=== PATIENT | male | born 1955 | race Caucasian/White ===

== ENCOUNTER 2023-09-12 18:47 | Inpatient (IN) | payer OTHER ==
[2023-09-12 19:18] LABS: Absolute Lymphocytes (CBC) 3.1 K/uL (0.7-4.9); Hematocrit 42.1 % (39.6-49.0); Lymphocytes % 38.5 % (15.3-44.8); MCV 94.3 fL (80-100); Platelets 250 thou/uL (152-406); RBC Red Blood Cell Count 4.46 M/uL (4.33-5.43)
[2023-09-12] MEDS ORDERED: MAGNESIUM SULFATE 1 gm IVPB 1 GM/100 ML BAG IV ONE (19:27)
[2023-09-12] MEDS ORDERED: NA CHLORIDE 0.9% 1,000 ML ONE (19:27)
[2023-09-12 19:30] LABS: Protime INR 1.04
--- NOTE | 2023-09-12 19:36 | RAD REPORT ---
EXAM DESCRIPTION: RAD - Chest Single View - 09/12/2023 7:30 pm CLINICAL HISTORY: CHEST PAIN Chest pain. COMPARISON: Chest Pa And Lat (2 Views) dated 01/02/2022; Chest Pa And Lat (2 Views) dated 03/31/2016; CHEST SINGLE VIEW dated 12/22/2010 FINDINGS: Portable technique limits examination quality. The lungs are grossly clear. The heart is normal in size. No displaced fractures. IMPRESSION: No acute intrathoracic process suspected.
[2023-09-12 19:42] LABS: Albumin 3.9 g/dL (3.4-5.0); Bilirubin Direct 0.2 mg/dL (0-0.2); Bilirubin Indirect, Calculated 0.4 mg/dL (0.2-0.8); Bilirubin Total 0.6 mg/dL (0.2-1.0); Potassium 3.9 mEq/L (3.5-5.1); Troponin High Sensitivity 11.9 pg/mL (<58.9)
[2023-09-12] MEDS ORDERED: NA CHLORIDE 0.9% 500 ML ONE (20:49)
--- NOTE | 2023-09-12 20:53 | RAD REPORT ---
EXAM DESCRIPTION: CTAbdomen Pelvis W Contrast - 09/12/2023 8:37 pm CLINICAL HISTORY: Abdominal pain. dysuria, possible prostatitis COMPARISON: No comparisons TECHNIQUE: Biphasic CT imaging of the abdomen and pelvis was performed with 100 ml non-ionic IV cont rast. All CT scans are performed using dose optimization technique as appropriate and may include automated exposure control or mA/KV adjustment according to patient size. FINDINGS: The lung bases are clear. The liver, spleen, pancreas, adrenal glands and kidneys are within normal limits. Benign right renal cysts. No bowel obstruction, free air, free fluid or abscess. Moderate retained stool throughout the colon. Mild sigmoid diverticulosis coli without diverticulitis. The appendix is normal. No evidence of sign ificant lymphadenopathy. Small fat containing bilateral inguinal hernias. Mild lumbosacral degenerative changes. IMPRESSION: No acute intra-abdominal or pelvic finding.
--- NOTE | 2023-09-12 20:54 | RAD REPORT ---
EXAM DESCRIPTION: CT - Chest For Pe Angio - 09/12/2023 8:37 pm CLINICAL HISTORY: Chest pain. Palpitations;Chest pain COMPARISON: No comparisons TECHNIQUE: CT angiogram of the pulmonary arteries was performed with MIP. All CT scans are performed using dose optimization technique as appropriate and may include automated exposure control or mA/KV adjustment according to patient size. FINDINGS: No evidence of pulmonary thromboembolism. No acute aortic finding demonstrated. 6 mm nodule is present posterior right middle lobe abutting the fissure. Mild atelectasis is present in the left lung base. No focal infiltrate is seen. No significant pericardial or pleural fluid. No concerning bony finding. IMPRESSION: No evidence of pulmonary thromboembolism. No acute lung findings. 6 mm right middle lobe nodule. Follow-up low-dose CT (LDCT) recommended in 6-12 months.
--- NOTE | 2023-09-12 21:15 | EDPHYS ---
Physician Documentation [facility] Name: Dwayne Albarado Age: 67 yrs Sex: Male : 1955 Arrival Date: 09/12/2023 Time: 18:47 Bed 5 Private MD: ED Physician Edis Dickinson HPI: 09/12 19:27 This 67 yrs old Male presents to ER via Ambulatory with complaints of Chest Tightness, internet consultant Rate Probelm. 19:27 The patient or guardian reports chest pain that is located primarily in the anterior rn chest wall. Onset: today. The pain does not radiate. Associated signs and symptoms: Pertinent positives: dizziness, lightheadedness, palpitations, Pertinent negatives: shortness of breath, syncope. The chest pain is described as aching. Duration: The patient or guardian reports multiple episodes, that are intermittent. Modifying factors: The symptoms are alleviated by nothing. the symptoms are aggravated by nothing. Severity of pain: At its worst the pain was mild in the emergency department the pain is unchanged. The patient has not experienced similar symptoms in the past. Patient reports not feeling well over the last 2 days. Reports combination of chest pain, palpitations, lightheadedness. Also reports dysuria and small amount of penile discharge. Reports history of frequent prostate infections. Denies fever. No chills. No abdominal pain. No vomiting or diarrhea. No shortness of breath. No syncope. Reports his watch stated heart rate in the 30s.. Historical: - Allergies: 18:59 No Known Allergies; hb - Immunization history:: Client reports having NOT received the Covid vaccine. Flu vaccine is not up to date. - Family history:: not pertinent. - Social history:: Smoking status: Patient denies any tobacco usage or history of. - Hospitalizations: : No recent hospitalization is reported. ROS: 19:27 Constitutional: Negative for fever, chills, and weight loss, Eyes: Negative for injury, rn pain, redness, and discharge, Neck: Negative for injury, pain, and swelling, Cardiovascular: Positive for chest pain and palpitations Respiratory: Negative for shortness of breath, cough, wheezing, and pleuritic chest pain, Abdomen/GI: Negative for abdominal pain, nausea, vomiting, diarrhea, and constipation, : Positive for dysuria and discharge MS/Extremity: Negative for injury and deformity, Skin: Negative for injury, rash, and discoloration, Neuro: Positive for generalized weakness and malaise Exam: 19:27 Constitutional: This is a well developed, well nourished patient who is awake, alert, rn and in no acute distress. Head/Face: Normocephalic, atraumatic. ENT: Dry mucous membranes Cardiovascular: Tachycardic, irregular Respiratory: Mild tachypnea Abdomen/GI: Soft, nontender MS/ Extremity: Pulses equal, no cyanosis. Neuro: Awake and alert, GCS 15 20:35 ECG was reviewed by the Attending Physician. rn Vital Signs: 18:57 BP 156 / 90; Pulse 113; Resp 23; Temp 97.9(TE); Pulse Ox 97% on R/A; Pain 1/10; hb 19:38 BP 141 / 65; Pulse 95; Pulse Ox 95% on R/A; tm6 21:01 BP 130 / 59; Pulse 108; Pulse Ox 96% on R/A; tm6 21:54 BP 136 / 68; Pulse 92; Pulse Ox 96% on R/A; tm6 22:30 BP 119 / 57; Pulse 89; Resp 18; Pulse Ox 95% on R/A; km8 23:33 BP 135 / 77; Pulse 85; Resp 16; Pulse Ox 95% on R/A; km8 18:57 Pain Scale: Adult hb [place] Coma Score: 19:35 Eye Response: spontaneous(4). Motor Response: obeys commands(6). Verbal Response: km8 oriented(5). Total: 15. MDM: 18:52 Patient medically screened. sp3 21:13 Differential diagnosis: acute myocardial infarction, acute pericarditis, anxiety, rn coronary artery disease pleurisy, pneumothorax, pulmonary embolus, stable angina, thoracic aortic disection, unstable angina, prostatitis, urethritis. Data reviewed: vital signs, nurses notes, lab test result(s), EKG, radiologic studies, CT scan, plain films, and as a result, I will admit patient. Consideration of Admission/Observation Patient was admitted/placed on observation. Escalation of care including admission/observation considered. Counseling: I had a detailed discussion with the patient and/or guardian regarding the historical points, exam findings, and any diagnostic results supporting the discharge/admit diagnosis, lab results, radiology results, the need for further work-up and treatment in the hospital. Response to treatment: the patient's symptoms have mildly improved after treatment. 23:03 Independent interpretation of the following test(s) in the Emergency Department internet marketing analyst monitor: rate is 86 beats/min, Rhythm is normal sinus rhythm, irregular, with unifocal PVCs, Interpretation: sinus rhythm with PVCs, bigeminy at times. 09/12 18:52 Order name: Basic Metabolic Panel; Complete Time: 19:53 sp3 09/12 18:52 Order name: CBC with Diff; Complete Time: 19:29 sp3 09/12 18:52 Order name: LFT's; Complete Time: 19:53 sp3 09/12 18:52 Order name: Magnesium; Complete Time: 19:53 sp3 09/12 18:52 Order name: NT PRO-BNP; Complete Time: 19:53 sp3 09/12 18:52 Order name: PT-INR; Complete Time: 19:53 sp3 09/12 18:52 Order name: Troponin HS; Complete Time: 19:53 sp3 09/12 19:13 Order name: Urinalysis w/ reflexes; Complete Time: 22:02 rn 09/12 22:37 Order name: CBC with Automated Diff EDMS 09/12 22:37 Order name: CBC with Automated Diff EDMS / 22:37 Order name: Comprehensive Metabolic Panel EDDE / 22:37 Order name: Comprehensive Metabolic Panel EDDE / 22:37 Order name: Lipid Profile EDMS / 22:37 Order name: Lipid Profile EDMS / 22:37 Order name: Magnesium EDMS 09/12 22:37 Order name: Magnesium EDMS 09/12 22:37 Order name: Troponin High Sensitivity EDMS 09/12 22:37 Order name: Troponin High Sensitivity EDMS / 22:37 Order name: Troponin High Sensitivity EDMS / 22:37 Order name: Troponin High Sensitivity EDMS / 18:52 Order name: XRAY Chest (1 view); Complete Time: 19:53 sp3 09/12 19:29 Order name: CT Chest For PE Angio; Complete Time: 20:55 rn 09/12 19:30 Order name: CT Abd/Pelvis - IV Contrast Only; Complete Time: 20:55 rn 09/12 18:52 Order name: EKG; Complete Time: 18:53 sp3 09/12 22:37 Order name: CONS Physician Consult EDDE 09/12 18:52 Order name: Cardiac monitoring; Complete Time: 19:00 3 09/12 18:52 Order name: EKG - Nurse/Tech; Complete Time: 19:00 3 09/12 18:52 Order name: IV Saline Lock; Complete Time: 19:12 sp3 09/12 18:52 Order name: Labs collected and sent; Complete Time: 19:12 3 09/12 18:52 Order name: O2 Per Protocol; Complete Time: 19:00 sp3 09/12 18:52 Order name: O2 Sat Monitoring; Complete Time: 19:3 EC:35 Rate is 136 beats/min. Rhythm is irregular. Left axis deviation noted. QRS is positive rn in lead I and negative in lead aVF. OK interval is normal. QRS interval is normal. QT interval is normal. No Q waves. T waves are Normal. No ST changes noted. Clinical impression: NSR w/ Non-specific ST/T Changes and PVCs. Interpreted by me. Reviewed by me. Administered Medications: 19:34 Drug: NS 0.9% IV 1000 ml IV at 1000 ml once Route: IV; Rate: 1000 ml; Site: right [address]; 21:27 Follow up: IV Status: Completed infusion; IV Intake: 1000ml [facility] 19:34 Drug: Magnesium Sulfate IVPB 1 grams IVPB once over 1 hrs Route: IVPB; Infused Over: 1 km8 hrs; Site: right antecubital; 21:27 Follow up: IV Status: Completed infusion; IV Intake: 150ml [facility] 22:59 Drug: Aspirin PO Chewable Tablet 324 mg PO once; 81 mg tablets x 4 Route: PO; km8 23:12 Follow up: Response: No adverse reaction 8 Disposition Summary: 09/12/23 21:14 Hospitalization Ordered Notes: Hospitalization Status: Observation rn Provider: Be Joyner rn Location: Telemetry/MedSurg (observation) rn Condition: Stable rn Problem: new rn Symptoms: have improved rn Bed/Room Type: Standard rn Room Assignment: 212(09/12/23 23:12) cg Diagnosis - Chest pain, unspecified rn - Palpitations rn Forms: - Medication Reconciliation Form rn - SBAR form rn - Leadership Thank You Letter rn Signatures: Dispatcher [employer] Edis Rivera MD MD rn Garcia, Cindy, RN RN Conchita Hubbard RN RN hb Bryson, James, RN RN jb4 Daryl Landrum MD MD sp3 Shannan Fam RN RN km8 Corrections: (The following items were deleted from the chart) 22:59 21:14 rn jb4 23:08 22:59 408 jb4 23:10 23:08 jb 23:12 23:[address] [place] [address]
--- NOTE | 2023-09-12 21:15 | ER ---
Nurse's Notes [facility] Name: Dwayne Albarado Age: 67 yrs Sex: Male : 1955 Arrival Date: 09/12/2023 Time: 18:47 Bed 5 Private MD: Diagnosis: Chest pain, unspecified;Palpitations Presentation: 09/12 18:57 Chief complaint: Chest pressure and dizziness x 2-3 days, anxiety and malaise since hb this morning. Garmin showed HR 30s just WHEEL BORER. Coronavirus screen: At this time, the client does not indicate any symptoms associated with coronavirus-19. Ebola Screen: No symptoms or risks identified at this time. Initial Sepsis Screen: Does the patient meet any 2 criteria? No. Patient's initial sepsis screen is negative. Does the patient have a suspected source of infection? No. Patient's initial sepsis screen is negative. Risk Assessment: Do you want to hurt yourself or someone else? Patient reports no desire to harm self or others. Onset of symptoms was September 10, 2023. 18:57 Method Of Arrival: Ambulatory hb 18:57 Acuity: GALLO 3 hb Historical: - Allergies: 18:59 No Known Allergies; hb - Immunization history:: Client reports having NOT received the Covid vaccine. Flu vaccine is not up to date. - Family history:: not pertinent. - Social history:: Smoking status: Patient denies any tobacco usage or history of. - Hospitalizations: : No recent hospitalization is reported. Screenin:35 [facility] ED Fall Risk Assessment (Adult) History of falling in the last 3 months, km8 including since admission No falls in past 3 months (0 pts) Confusion or Disorientation No (0 pts) Intoxicated or Sedated No (0 pts) Impaired Gait No (0 pts) Mobility Assist Device Used No (0 pt) Altered Elimination No (0 pt) Score/Fall Risk Level 0 - 2 = Low Risk Oriented to surroundings, Maintained a safe environment, Educated pt \T\ family on fall prevention, incl call for assistance when getting out of bed, Assessed \T\ reinforced patient's understanding of fall precautions. Abuse screen: Denies threats or abuse. Denies injuries from another. Nutritional screening: No deficits noted. Tuberculosis screening: No symptoms or risk factors identified. Assessment: 19:35 General: Appears in no apparent distress. comfortable, Behavior is calm, cooperative, km8 appropriate for age. Pain: Denies pain. Neuro: Level of Consciousness is awake, alert, obeys commands, Oriented to person, place, time, situation. Cardiovascular: Denies chest pain, shortness of breath, Capillary refill < 3 seconds Patient's skin is warm and dry. Respiratory: Airway is patent Respiratory effort is even, unlabored, Respiratory pattern is regular, symmetrical. GI: No signs and/or symptoms were reported involving the gastrointestinal system. : No signs and/or symptoms were reported regarding the genitourinary system. EENT: No signs and/or symptoms were reported regarding the EENT system. Derm: No signs and/or symptoms reported regarding the dermatologic system. Skin is intact, is healthy with good turgor, Skin is dry, Skin is pink, warm \T\ dry. normal, Skin temperature is warm. Musculoskeletal: No signs and/or symptoms reported regarding the musculoskeletal system. Circulation, motion, and sensation intact. Range of motion: intact in all extremities. 21:01 Reassessment: Patient appears in no apparent distress at this time. No changes from tm6 previously documented assessment. Patient and/or family updated on plan of care and expected duration. Pain level reassessed. Patient is alert, oriented x 3, equal unlabored respirations, skin warm/dry/pink. 21:55 Reassessment: Patient appears in no apparent distress at this time. No changes from tm6 previously documented assessment. Patient and/or family updated on plan of care and expected duration. Pain level reassessed. Patient is alert, oriented x 3, equal unlabored respirations, skin warm/dry/pink. Vital Signs: 18:57 BP 156 / 90; Pulse 113; Resp 23; Temp 97.9(TE); Pulse Ox 97% on R/A; Pain 1/10; hb 19:38 BP 141 / 65; Pulse 95; Pulse Ox 95% on R/A; tm6 21:01 BP 130 / 59; Pulse 108; Pulse Ox 96% on R/A; tm6 21:54 BP 136 / 68; Pulse 92; Pulse Ox 96% on R/A; tm6 22:30 BP 119 / 57; Pulse 89; Resp 18; Pulse Ox 95% on R/A; km8 23:33 BP 135 / 77; Pulse 85; Resp 16; Pulse Ox 95% on R/A; km8 18:57 Pain Scale: Adult hb Oleksandr Coma Score: 19:35 Eye Response: spontaneous(4). Motor Response: obeys commands(6). Verbal Response: km8 oriented(5). Total: 15. ED Course: 18:50 Patient arrived in ED. mg5 18:58 Triage completed. hb 19:01 Edis Dickinson MD is Attending Physician. rn 19:11 Inserted saline lock: 20 gauge in right antecubital area, using aseptic technique. tl4 Blood collected. 19:12 Basic Metabolic Panel Sent. tl4 19:12 CBC with Diff Sent. tl4 19:12 LFT's Sent. tl4 19:12 Magnesium Sent. tl4 19:12 NT PRO-BNP Sent. tl4 19:12 PT-INR Sent. tl4 19:12 Troponin HS Sent. tl4 19:32 XRAY Chest (1 view) In Process Unspecified. EDMS 19:35 Shannan Fam, RN is Primary Nurse. km8 19:35 No provider procedures requiring assistance completed. Patient maintains SpO2 km8 saturation greater than 95% on room air. 19:35 Patient has correct armband on for positive identification. Bed in low position. Call km8 light in reach. Side rails up X 1. Client placed on continuous cardiac and pulse oximetry monitoring. NIBP monitoring applied. 19:37 Arm band placed on right wrist. km8 20:39 CT Chest For PE Angio In Process Unspecified. EDMS 20:39 CT Abd/Pelvis - IV Contrast Only In Process Unspecified. EDMS 21:14 Be Joyner MD is Hospitalizing Provider. rn 21:27 Urinalysis w/ reflexes Sent. km8 23:11 Patient admitted, IV remains in place. km8 23:11 Provided Education on: admission process. km8 Administered Medications: 19:34 Drug: NS 0.9% IV 1000 ml IV at 1000 ml once Route: IV; Rate: 1000 ml; Site: right 8 antecubital; 21:27 Follow up: IV Status: Completed infusion; IV Intake: 1000ml km8 19:34 Drug: Magnesium Sulfate IVPB 1 grams IVPB once over 1 hrs Route: IVPB; Infused Over: 1 km8 hrs; Site: right antecubital; 21:27 Follow up: IV Status: Completed infusion; IV Intake: 150ml km8 22:59 Drug: Aspirin PO Chewable Tablet 324 mg PO once; 81 mg tablets x 4 Route: PO; km8 23:12 Follow up: Response: No adverse reaction km8 Medication: 19:35 VIS not applicable for this client. km8 Intake: 21:27 IV: 150ml; Total: 150ml. km8 21:27 IV: 1000ml; Total: 1150ml. km8 Output: 21:54 Urine: 200ml (Voided); Total: 200ml. tm6 Outcome: 21:14 Decision to Hospitalize by Provider. rn 23:33 Admitted to Med/surg accompanied by tech, via wheelchair, room 212, with chart, Report km8 called to JOSE Zepeda 23:33 Condition: stable 23:33 Instructed on the need for admit, Demonstrated understanding of instructions, 23:43 Patient left the ED. km8 Signatures: Dispatcher [employer] EDMS Edis Dickinson MD MD rn Baxter, Heather, RN RN hb Gardner, [place] mg5 Shnanan Fam RN RN km8 Tammie Graves RN RN 6 Jose Angeles 4
[2023-09-12 22:00] LABS: Specific Gravity > 1.030 (1.005-1.030); Urine Bacteria None Seen /HPF (<20); Urine Bilirubin NEGATIVE (Negative); Urine Blood Trace (Negative); Urine Clarity Clear (Clear); Urine Color Colorless (Yellow); Urine Glucose NEGATIVE (Negative); Urine Protein NEGATIVE (Negative); Urine RBC <5 /HPF (None Seen); Urine Urobilinogen Normal (Normal); Urine pH 6.5 (5.0-7.0)
[2023-09-12] MEDS ORDERED: ACETAMINOPHEN 325 MG TABLET PO PRN (22:31)
[2023-09-12] MEDS ORDERED: ONDANSETRON 4 MG/2 ML VIAL IV PRN (22:31)
--- NOTE | 2023-09-12 22:36 | P.HP ---
Certification for Inpatient Patient admitted to: Observation With expected LOS: <2 Midnights Practitioner: I am a practitioner with admitting privileges, knowledge of patient current condition, hospital course, and medical plan of care. Services: Services provided to patient in accordance with Admission requirements found in Title 42 Section 412.3 of the Code of Federal Regulations Patient History Date of Service: 09/13/23 Reason for admission: Tachycardia. History of Present Illness: 67-year-old male patient with significant medical history for hypothyroidism and benign prostatic hypertrophy who was evaluated in the emergency room for episode of lethargy and palpitation. He had tachycardia and EKG was abnormal. He had a couple of PVCs and bigeminy so he was admitted for inpatient care. Initial lab was not concerning for ACS as troponin was negative. Electrolytes were also within acceptable limits. Patient did report that he had an exertion when he had a bike ride for 12 mile however he had no history of chest pain, nausea, vomiting, diarrhea. He had no prior history of cardiac workup. Allergies No Known Allergies Allergy (Unverified 09/12/23 23:15) Home Medications: Levothyroxine [Synthroid*] 0.05 mg PO DAILY 09/12/23 Tamsulosin [Flomax*] 0.4 mg PO DAILY 09/12/23 Zolpidem Tartrate [Ambien] 10 mg PO BEDTIME PRN PRN 09/12/23 Review of Systems General: Weakness, Malaise Eyes: Unremarkable ENT: Unremarkable Respiratory: As per HPI Cardiovascular: Unremarkable Gastrointestinal: Unremarkable Genitourinary: Unremarkable Musculoskeletal: Unremarkable Integumentary: Unremarkable Neurological: Unremarkable Lymphatics: Unremarkable Physical Examination - Physical Exam General: Alert, Oriented x3 HEENT: Atraumatic Neck: Supple Respiratory: Normal air movement Cardiovascular: Other (tachycardia) Gastrointestinal: Soft and benign Musculoskeletal: No swelling Neurological: Normal speech, Normal strength at 5/5 x4 extr - Studies Laboratory Data (last 24 hrs) 09/12/23 09/12/23 09/12/23 19:08 19:08 19:08 WBC 8.20 Hgb 14.5 Hct 42.1 Plt Count 250 PT 11.4 INR 1.04 Sodium 138 Potassium 3.9 BUN 12 Creatinine 0.99 Glucose 91 Magnesium 2.0 Total Bilirubin 0.6 AST 25 ALT 40 Alkaline Phosphatase 72 Assessment and Plan - Plan Tachycardia: EKG was concerning for multiple PVCs, premature atrial complexes and PVCs. Patient has been put on telemetry. Will trend troponin, obtain echocardiogram for evaluation of cardiac health and consult cardiology for management recommendation. Will obtain lipid panel to assess coronary risks. IV hydration started. Will also put on as needed Ativan for anxiety management. Hypothyroidism: We will continue levothyroxine dose for thyroid replacement therapy. Benign prostatic hypertrophy: Will continue tamsulosin dose. Prophylaxis: Lovenox for GI prophylaxis Consult: Full code Disposition: We will treat and will complete echo with manual be discharged once cleared by cardiology service. - Advance Directives Does patient have a Living Will: No Does patient have a Durable POA for Healthcare: No
[2023-09-12] MEDS ORDERED: ASPIRIN 81 MG CHEWABLE TABLET ONE (22:55)
[2023-09-12 23:07] VITALS: BMI 28.2
[2023-09-13] MEDS: ALPRAZOLAM 0.25 MG TABLET PO PRN (00:28)
[2023-09-13] MEDS: NA CHLORIDE 0.9% 1,000 ML IV SCH (00:28)
[2023-09-13 02:39] LABS: Absolute Lymphocytes (CBC) 2.5 K/uL (0.7-4.9); Lymphocytes % 40.8 % (15.3-44.8); MCV 94.5 fL (80-100); MPV 7.7 fL (7.6-11.3); Platelets 220 thou/uL (152-406); RBC Red Blood Cell Count 3.91 M/uL (4.33-5.43)
[2023-09-13 02:56] LABS: Albumin 3.2 g/dL (3.4-5.0); Bilirubin Total 0.4 mg/dL (0.2-1.0); Magnesium 2.1 mg/dL (1.6-2.4); Potassium 3.9 mEq/L (3.5-5.1); Protein, Total 5.8 g/dL (6.4-8.2)
[2023-09-13] MEDS: POTASSIUM CL SA 10 MEQ TAB PO ONE (08:26)
[2023-09-13] MEDS: ENOXAPARIN 40 MG/0.4 ML SQ SCH (08:26)
--- NOTE | 2023-09-13 10:25 | P.PN ---
Subjective Date of Service: 09/13/23 Chief Complaint: Tachycardia. Subjective: No new changes, Improving, Doing well Patient is alert and oriented x 3 Resting in the bed NAD Denies any pain or shortness of breath Vital stable <Nikki Mcginnismike - Last Filed: 09/13/23 10:25> Date of Service: 09/14/23 <Collin Joyner - Last Filed: 09/14/23 22:01> Review of Systems 10-point ROS is otherwise unremarkable <Casey Mcginnises - Last Filed: 09/13/23 10:25> Physical Examination - Vital Signs Temperature: 99.1 F Blood Pressure: 126/71 Pulse: 50 Respirations: 15 Pulse Ox (%): 95 - Physical Exam General: Alert, In no apparent distress HEENT: Atraumatic, Normocephalic Neck: Supple, 2+ carotid pulse no bruit Respiratory: Clear to auscultation bilaterally, Normal air movement Cardiovascular: No edema, Normal pulses, Other Gastrointestinal: Normal bowel sounds, Soft and benign, Non-distended Musculoskeletal: No clubbing, No swelling Integumentary: No rashes, No breakdown Neurological: Normal gait, Normal speech, Normal tone - Studies Laboratory Data (last 24 hrs) 09/12/23 09/12/23 09/12/23 19:08 19:08 19:08 WBC 8.20 Hgb 14.5 Hct 42.1 Plt Count 250 PT 11.4 INR 1.04 Sodium 138 Potassium 3.9 BUN 12 Creatinine 0.99 Glucose 91 Magnesium 2.0 Total Bilirubin 0.6 AST 25 ALT 40 Alkaline Phosphatase 72 <Nikki Mcginnismike - Last Filed: 09/13/23 10:25> Assessment And Plan - Current Problems (Diagnosis) (1) Tachycardia Current Visit: Yes Status: Acute (2) Hypothyroid Current Visit: Yes Status: Chronic Qualifiers: Hypothyroidism type: acquired Qualified Code(s): E03.9 - Hypothyroidism, unspecified (3) BPH (benign prostatic hyperplasia) Current Visit: Yes Status: Chronic Qualifiers: Lower urinary tract symptom presence: symptoms absent Qualified Code(s): N40.0 - Benign prostatic hyperplasia without lower urinary tract symptoms (4) Lung nodule seen on imaging study Current Visit: Yes Status: Acute - Plan Tachycardia: EKG was concerning for multiple PVCs, premature atrial complexes and PVCs. Patient has been put on telemetry. Will trend troponin, obtain echocardiogram for evaluation of cardiac health and consult cardiology for management recommendation. Will obtain lipid panel to assess coronary risks. IV hydration started. Will also put on as needed Ativan for anxiety management. Transthoracic echocardiogram ordered. Lung Nodule seen on imaging study: Incidental finding of 6 mm nodule is present posterior right middle lobe abutting the fissure. Mild atelectasis is present in the left lung base. Patient to f/u with sales development manager outpatient. Hypothyroidism: We will continue levothyroxine dose for thyroid replacement therapy. Benign prostatic hypertrophy: Will continue tamsulosin dose. Prophylaxis: Lovenox for GI prophylaxis Consult: Full code Disposition: We will treat and will complete echo with manual be discharged once cleared by cardiology service Discharge Plan: Home Plan to discharge in: 24 Hours - Code Status/Comfort Care Code Status Assessed: Yes (full code) Code Status: Full Code Physician Review: Patient Assessed, Agree with Above Assessment and Plan Critical Care: No Time Spent Managing PTS Care (In Minutes): 35 (minutes) <Yakov Mcginnis - Last Filed: 09/13/23 10:25> - Plan Pt seen and examined. I agree withe the note by the SECOND CLASS WELDER. Pt is waiting for Cardiology eval. Continue telemetry. <Collin Joyner - Last Filed: 09/14/23 22:01>
[2023-09-13] MEDS: TAMSULOSIN 0.4 MG SR CAP PO SCH (14:17)
[2023-09-13] MEDS: ZOLPIDEM TARTRATE 10 MG TABLET PO PRN (20:00)
[2023-09-14] MEDS: LEVOTHYROXINE SOD 0.05 MG TABLET PO SCH (05:18)
--- NOTE | 2023-09-14 13:15 | P.PN ---
Subjective Date of Service: 09/14/23 Chief Complaint: Tachycardia. Pt is resting comfortably in bed. He is anxious about seeing the sewer hand. Dr. Keating recommends cardiac cath. Pt is thinking about it. No other complaints. Review of Systems Unremarkable General: Unremarkable Eyes: Unremarkable ENT: Unremarkable Respiratory: Unremarkable Cardiovascular: Palpitations Gastrointestinal: Unremarkable Genitourinary: Unremarkable Musculoskeletal: Unremarkable Integumentary: Unremarkable Neurological: Unremarkable Lymphatics: Unremarkable Physical Examination - Vital Signs Temperature: 98.6 F Blood Pressure: 143/89 Pulse: 70 Respirations: 16 Pulse Ox (%): 98 - Physical Exam General: Alert, In no apparent distress, Oriented x3 HEENT: Atraumatic, Normocephalic, PERRLA Neck: Supple, 2+ carotid pulse no bruit Respiratory: Clear to auscultation bilaterally, Normal air movement Cardiovascular: No edema, Normal pulses, Regular rate/rhythm, Normal S1 S2 Capillary refill: <2 Seconds Gastrointestinal: Normal bowel sounds, Soft and benign, Non-distended Musculoskeletal: No clubbing, No swelling Integumentary: No rashes, No breakdown Neurological: Normal gait, Normal speech, Normal strength at 5/5 x4 extr, Normal tone, Sensation intact, Cranial nerves 3-12 intact, Normal reflexes 2+ Lymphatics: No axilla or inguinal lymphadenopathy Assessment And Plan - Plan Tachycardia: EKG showed multiple PVCs, premature atrial complexes and PVCs. Consulted Cardiology. Cardiology is recommending cardiac cath. Waiting for the pt to decide whether he wants to proceed with cardiac cath. Troponin is unremarkable. Will follow up Echo. Anxiety: prn ativan 6mm Lung Nodule: It is an incidental finding of 6 mm nodule in the posterior right middle lobe abutting the fissure. Pt will follow up with Boat Detailer in clinic. Hypothyroidism: Continue levothyroxine. Benign prostatic hypertrophy: tamsulosin dose. DVT Prophylaxis: Lovenox DVT ppx: Full code Disposition: Pending hospital course. Waiting for pt to decide whether he wants to proceed with cardiac cath. Physician Review: Patient Assessed, Agree with Above Assessment and Plan
--- NOTE | 2023-09-14 13:53 | CON ---
Date of Consultation: 09/14/2023 Reason For Consultation: Chest discomfort and bradycardia. History Of Present Illness: 67-year-old male, history of hypothyroidism, enlarged prostate, presente d with episodes of dizziness, feeling generally weak, and checked his Apple watch, which told him his heart rate was 34, presented into the emergency room. He has been active, biking on a bicycle on a regular basis, but he has been having chest tightness and shortness of breath with extreme activities now, where he did not have before. Denies having any nausea or vomiting, and on the EKGs having isaiah y frequent PVCs. Past Medical History: As outlined above in the HPI. Medications: Refer to reconciliation sheet for detailed list. Allergies: NO KNOWN DRUG ALLERGIES. Family History: No premature coronary artery disease or cancer. Social History: He does not smoke or drink. Does not use any drugs. Review of Systems: All systems reviewed were negative except mentioned in HPI. Physical Examination: Vital Signs: Reviewed. Head and Neck: Pupils are equal, reactive to light. Intact eye movements. No JVD. No cervical lym phadenopathy. Neck is supple. Thyroid is not enlarged. Lungs: Clear to auscultation bilaterally. No rhonchi, rales, or crackles. No accessory muscle use. Heart: Regular rate and rhythm. No extra sounds. Abdomen: Soft, nontender. Bowel sounds positive. No organomegaly. No masses or hernia. No rigidi ty or rebound. Extremities: No edema, clubbing, cyanosis. Intact pulses. Skin: No rash or nodule. Neurologic: Alert, awake, oriented x3. No acute focal deficits appreciated. Lymph Nodes: No cervical or axillary lymphadenopathy. Investigations: Cardiac enzymes x3 are negative. BUN 14, creatinine 0.79, hemoglobin 12.8. Assessment And Recommendations: 1.Chest pain with very frequent PVCs. Ischemia evaluation is recommended. Given that continued ons et, this could be unstable angina. Plan for coronary angiogram today. Keep NPO and further recommen dation after the left heart catheterization. Continue baby aspirin. 2.PVCs, very frequent, causing his symptoms for the most part. If coronary angiogram is negative, s tart him on metoprolol 25 mg twice a day and carefully monitor his heart rate response to it on the t elemetry. So I would keep him for 24 hours for that purpose. 3.Elevated blood pressure likely hypertension. Metoprolol as above. SR/MODL Voice ID: [id number] Report ID: [id number]
--- NOTE | 2023-09-14 15:03 | EKG ---
Test Date: 2023-09-12 Test Time: 18:58:30 Bog Worker: Jermaine RAMÍREZ MEASUREMENT RESULTS: Intervals: Rate: 111 CO: 158 QRSD: 78 QT: 338 QTc: 459 Munith: P: 47 CO: 158 QRS: -33 T: 15 INTERPRETIVE STATEMENTS: Sinus rhythm Left axis deviation Inferior infarct, age undetermined Abnormal ECG Ventricular premature complex(es) no longer present Myocardial infarct finding still present Electronically Signed On 09-14-23 14:59:15 NUCLEAR OFFICER by Wellington Keating
--- NOTE | 2023-09-14 15:03 | EKG ---
Test Date: 2023-09-12 Test Time: 18:58:02 Maintenance Director: Jermaine SI MEASUREMENT RESULTS: Intervals: Rate: 136 [place]: 158 QRSD: 82 QT: 322 QTc: 484 [place]: P: 47 [place]: 158 QRS: -39 T: 31 INTERPRETIVE STATEMENTS: Sinus rhythm with frequent and consecutive premature ventricular complexes Left axis deviation Inferior infarct, age undetermined Abnormal ECG No previous ECG available for comparison Electronically Signed On 09-14-23 14:59:18 ECONOMIC ADVISER by Wellington Keating
[2023-09-14] MEDS ORDERED: VERAPAMIL HCL 10 MG/4 ML VIAL IV ONE (15:46)
[2023-09-14] MEDS ORDERED: HEPA 1000U/500MLS 2,000 UNIT/1,000 ML BAG IV ONE (15:46)
[2023-09-14] MEDS ORDERED: LIDOCAINE 1% 20 ML MDV ONE (15:46)
[2023-09-14] MEDS ORDERED: MIDAZOLAM HCL 2 MG/2 ML INJ ONE (15:46)
[2023-09-14] MEDS ORDERED: FENTANYL CITR 100 MCG/2 ML ONE (15:46)
[2023-09-14] MEDS ORDERED: HEPARIN 5000 UNIT/ML 1 ML VIAL ONE (15:47)
[2023-09-14] MEDS ORDERED: ATROPINE SULF 1 MG/10 ML SYR IV ONE (15:47)
[2023-09-14] MEDS ORDERED: HEPARIN 10,000 UNIT/10 ML VIAL IV ONE (15:47)
[2023-09-14] MEDS: SOTALOL HCL 80 MG TAB PO ONE (17:15)
[2023-09-14 20:16] LABS: Thyroid Stimulating Hormone 3.89 uIU/mL (0.358-3.740)
[2023-09-14] MEDS: SOTALOL HCL 80 MG TAB PO SCH (21:00)
--- NOTE | 2023-09-15 03:51 | OP ---
Date of Procedure: 09/14/2023 Surgeon: NAYLA WASHINGTON Procedure Performed: 1.Selective coronary angiogram. 2.Left heart catheterization. Indication: Chest pain with very frequent PVCs. He is in bigeminy all the time. Access: Right radial artery 6-Armenian closed with TR band. Complications: None. Bleeding: Less than 20 mL. Anesthesia: Total sedation time was 50 minutes. Used fentanyl, Versed. Description Of Procedure: After risks, benefits, alternatives were explained, the patient agreed to proceed and signed informed consent. Patient was brought into the cardiac catheterization laboratory , prepped and draped in usual sterile fashion. Then, we accessed the right radial artery using pedia tric micropuncture kit and placed 6-Armenian slender sheath and took a 6-Armenian JL3.5 catheter into aor tic root over a J-wire, engaged left main and took standard views and then exchanged for a 6-Armenian J R4 catheter, engaged the RCA, took standard views and the catheter was pushed over the wire into the LV, measured LVEDP. Pullback not recorded any gradient and then removed the catheter and the wire an d the sheath and placed TR band with good hemostasis. Findings: 1.Left main: Large and normal. 2.LAD: Very large vessel with mid focal 40% stenosis between diagonal 1 and diagonal 2. Diagonals are normal and then next to the diagonal 2, there is 20% stenosis. Rest of the LAD is normal. 3.Left circumflex: Very large and normal. 4.RCA: Large and dominant with mid 20% stenosis. 5.Normal LVEDP at 5 mmHg. Conclusion: 1.[id number] coronary artery disease, nonobstructive. 2.Normal LVEDP. Recommendation: Medical management. SR/MODL Voice ID: [id number] Report ID: [id number]
[2023-09-15 05:15] LABS: Potassium 4.4 mEq/L (3.5-5.1)
--- NOTE | 2023-09-15 07:15 | ECHO ---
HEIGHT: 5 ft 9 in WEIGHT: 191 lb 0 oz DATE OF STUDY: 09/14/[address]: Collin Joyner MD 2-DIMENSIONAL: YES M.MODE: YES DOPPLER: YES COLOR FLOW: YES TDS: PORTABLE: YES DEFINITY: BUBBLE STUDY: DIAGNOSIS: PREMATURE VENTRICULAR COMPLEXES CARDIAC HISTORY: CATHERIZATION: SURGERY: PROSTHETIC VALVE: PACEMAKER: MEASUREMENTS (cm) DIASTOLIC (NORMALS) SYSTOLIC (NORMALS) IVSd 1.0 (0.6-1.2) LA Diam 3.9 (1.9-4.0) LVEF 65% LVIDd 5.4 (3.5-5.7) LVIDs 3.4 (2.0-3.5) %FS 36% LVPWd 1.1 (0.6-1.2) Ao Diam 3.5 (2.0-3.7) 2 DIMENSIONAL ASSESSMENT: RIGHT ATRIUM: NORMAL LEFT ATRIUM: NORMAL RIGHT VENTRICLE: NORMAL LEFT VENTRICLE: NORMAL TRICUSPID VALVE: MILD TRICUSPID REGURGITATION MITRAL VALVE: MODERATE MITRAL REGURGITATION PULMONIC VALVE: NORMAL AORTIC VALVE: MILD AORTIC INSUFFICIENCY PERICARDIAL EFFUSION: NONE AORTIC ROOT: NORMAL LEFT VENTRICULAR WALL MOTION: NORMAL DOPPLER/COLOR FLOW: SEE BELOW COMMENTS: 1. NORMAL LEFT VENTRICULAR EJECTION FRACTION 60-65% WITH NORMAL WALL MOTION 2. MODERATE MITRAL REGURGITATION 3. MILD AORTIC INSUFFICIENCY 4. MILD TRICUSPID REGURGITATION TECHNOLOGIST: LEVI SWIFT
[2023-09-15 15:36] VITALS: O2SAT 96
--- NOTE | 2023-09-15 16:18 | PN ---
Date of Progress Note: 09/15/2023 Subjective: Seen at bedside. Clinically doing well. Still having atrial fibrillation. Tolerating sotalol very well. Review of Systems: No chest pain, shortness of breath, orthopnea, cough. No nausea, vomiting, diarrhea. All other syst ems reviewed are negative. Physical Examination: Vital Signs: Reviewed. Head and Neck: Pupils are equal, reactive to light. Intact eye movements. No JVD. No cervical lym phadenopathy. Neck supple. Thyroid is not enlarged. Lungs: Clear to auscultation bilaterally. No rhonchi, rales, or crackles. No accessory muscle use. Heart: Irregular. No extra sounds. Abdomen: Soft, nontender. Bowel sounds positive. No organomegaly. No masses or hernia. No rigidi ty or rebound Extremities: No clubbing, cyanosis. Intact pulses. Skin: No rash. Neurologic: Alert, awake, oriented x3. No acute focal deficits appreciated. Investigations: Labs reviewed. Assessment/recommendation: 1.Chest pain, noncardiac. Has mild coronary artery disease. Recommend Lipitor 40 mg q.h.s. and asp irin 81 mg daily. Can be released and then follow him as an outpatient. 2.Frequent PVCs, on sotalol. After third dose, check EKG. If QTc interval is normal, he can be released and follow him up as an outpatient. SR/MODL Voice ID: [id number] Report ID: [id number]
[2023-09-15 17:18] VITALS: BP 116/81; TEMP 98
== END 2023-09-15 18:32 | disposition home or self-care (01) | DRG 287 ==
LOC: ER 18:47 → ERHOLD 22:31 → 2ND 23:20 → OBSVTOIN 09-13 15:22
PROVIDERS: ADMIT Internal Medicine Nephrology; ATTEND Hospitalist
PROC: B2111ZZ Fluoroscopy of Multiple Coronary Arteries using Low Osmolar Contrast (ICD-10-PCS; principal; 2023-09-14)
PROC: 4A023N7 Measurement of Cardiac Sampling and Pressure, Left Heart, Percutaneous Approach (ICD-10-PCS; 2023-09-14)
DX: I48.91 Unspecified atrial fibrillation (principal); E03.9 Hypothyroidism, unspecified; F41.9 Anxiety disorder, unspecified; I49.3 Ventricular premature depolarization; N40.0 Benign prostatic hyperplasia without lower urinary tract symptoms; R91.8 Other nonspecific abnormal finding of lung field; I25.10 Atherosclerotic heart disease of native coronary artery without angina pectoris; Z79.890 Hormone replacement therapy; Z79.899 Other long term (current) drug therapy; Z28.310 Unvaccinated for COVID-19
CPT/HCPCS: 36415; 71045; 71275; 74177; 76937; 80048; 80053; 80061; 80076; 81001; 83735; 83880; 84439; 84443; 84484; 85025; 85610; 93005; 93306; 93458; 99152; 99153; C1893; G0378; J0461; J1644; J1650; J2001; J2250; J3010; J3475; J7030; J7040; Q9966; Q9967